=== PATIENT | male | born 1935 | race Caucasian/White ===

== ENCOUNTER 2018-08-02 17:33 | Emergency (ER) | payer OTHER ==
[~2018-08-02] VITALS: Ht 185.4 cm; Wt 81.7 kg
[~2018-08-02 17:33] MED LIST: AMBIEN 5 MG TABL5 M1 PO; COMPAZINE10 MG; GUAIFENESIN-CODE5 ML PO; HYDROCODONE-AP1 EAC6 PO; LIPITOR 20 MG T20 M1 PO; LOPRESSOR25 PO; OXYCONTIN10 M1 PO; PREDNISONE 10 M10 MG PO; REMERON15 MG; XARELTO10 MG PO; ZOFRAN ODT4 MG PO; ZPAK PO
[2018-08-02 18:55] LABS: HEMATOCRIT 37.5 % (42.0-52.0); HEMOGLOBIN 12.6 gm/dL (14.0-18.0); MCH 32.9 pg (26.0-34.0); MCHC 33.5 g/dL (28.0-37.0); PLATELET COUNT 199 thou/uL (150-400); RBC 3.83 mil/uL (4.50-6.00); WBC 5.3 thou/uL (4.0-11.0)
[2018-08-02 18:57] LABS: CREATININE 1.7 mg/dL (0.7-1.3); POTASSIUM 4.4 mmol/L (3.5-5.1)
[2018-08-02 19:14] LABS: APTT 33.2 Seconds (24.5-32.8); INR 1.1; PROTIME 11.6 Seconds (9.3-11.4)
[2018-08-02 19:24] LABS: ABSOLUTE NEUTROPHILS 2.6 thou/uL (1.4-8.2); ATYPICAL LYMPHS 8 %; PLATELET ESTIMATE NORMAL
[2018-08-02 19:26] LABS: ANISOCYTOSIS SLIGHT
[2018-08-02 20:30] VITALS: BP 192/101
== END 2018-08-02 20:30 | disposition home or self-care (01) ==
LOC: ER 17:33
PROVIDERS: Student in an Organized Health Care Education/Training Program
DX: S01.21XA Laceration without foreign body of nose, initial encounter (principal); S01.81XA Laceration without foreign body of other part of head, initial encounter; I48.91 Unspecified atrial fibrillation; Z96.653 Presence of artificial knee joint, bilateral; Z90.49 Acquired absence of other specified parts of digestive tract; Z88.8 Allergy status to other drugs, medicaments and biological substances; W18.39XA Other fall on same level, initial encounter; Y93.89 Activity, other specified; Y92.89 Other specified places as the place of occurrence of the external cause; Y99.8 Other external cause status

== ENCOUNTER 2020-02-06 08:58 | Inpatient (IN) | payer OTHER ==
[~2020-02-06] VITALS: Ht 175.3 cm; Wt 70.3 kg
[~2020-02-06 08:58] MED LIST changes: -LIPITOR 20 MG T20 M1 PO; +LIPITOR80 MG PO
[2020-02-06 08:59] VITALS: BP 177/78
[2020-02-06 09:45] LABS: ABSOLUTE NEUTROPHILS 10.2 thou/uL (1.4-8.2); BASOPHILS 0.5 % (0.0-2.0); HEMATOCRIT 38.2 % (42.0-52.0); HEMOGLOBIN 12.4 gm/dL (14.0-18.0); LYMPHOCYTES 4.1 % (24.0-44.0); MCH 32.6 pg (26.0-34.0); MCHC 32.5 g/dL (28.0-37.0); MCV 100.1 fL (80.0-100.0); MONOCYTES 11.9 % (1.0-8.0); PLATELET COUNT 222 thou/uL (150-400); POLYS 83.5 % (36.0-66.0); RBC 3.82 mil/uL (4.50-6.00); RDW 15.6 % (10.5-14.5); WBC 12.3 thou/uL (4.0-11.0)
[2020-02-06 09:53] LABS: URINE BILIRUBIN NEGATIVE (Negative); URINE BLOOD 1+ (Negative); URINE CLARITY CLEAR; URINE COLOR YELLOW; URINE GLUCOSE-RANDOM* NEGATIVE (Negative); URINE KETONES TRACE (Negative); URINE LEUKOCYTES-REFLEX NEGATIVE (Negative); URINE NITRITE-REFLEX NEGATIVE (Negative); URINE PROTEIN (DIPSTICK) 1+ (Negative); URINE SPECIFIC GRAVITY >= 1.030 (1.005-1.035)
[2020-02-06 09:54] LABS: CALCIUM 9.1 mg/dL (8.5-10.1); CREATININE 1.4 mg/dL (0.7-1.3); POTASSIUM 3.9 mmol/L (3.5-5.1)
[2020-02-06] MEDS ORDERED: TRAZODONE HCL50 MG PO (09:54)
[2020-02-06] MEDS ORDERED: HYDROCODON-ACE1 EAC8 PO (09:54)
[2020-02-06] MEDS ORDERED: LOW DOSE ASPIRI81 M1 PO (09:58)
[2020-02-06] MEDS ORDERED: CARVEDILOL12.5 MG PO (10:02)
[2020-02-06] MEDS ORDERED: MULTI-VITAMIN1 EAC5 PO (10:02)
[2020-02-06] MEDS ORDERED: AMIODARONE HCL400 MG PO (10:03)
[2020-02-06] MEDS ORDERED: VITAMIN B12-FO1 EAC1 PO (10:04)
[2020-02-06 10:05] LABS: ALBUMIN 3.4 g/dL (3.4-5.0); MAGNESIUM 2.1 mg/dL (1.8-2.4); TOTAL BILIRUBIN 1.4 mg/dL (0.2-1.0); TOTAL PROTEIN 7.5 g/dL (6.4-8.2); TROPONIN-I 0.06 ng/mL (<0.06)
[2020-02-06] MEDS ORDERED: COQ-1030 MG PO (10:05)
[2020-02-06] MEDS ORDERED: FISH OIL 1,0001 EAC9 PO (10:06)
[2020-02-06 10:12] LABS: BACTERIA-REFLEX None Seen /HPF (None Seen); CRYSTALS None Seen /LPF (None Seen); SQUAMOUS 0-3 Few /LPF (0-3); URINE RBC 0-2 Rare /HPF (0-2); URINE WBC-REFLEX None Seen /HPF (0-5)
--- NOTE | 2020-02-06 11:59 | EKG ---
[facility] [place] [address] ELECTROCARDIOGRAM REPORT Name: BRIANNA COLBY Room #: REG [facility]#: [id number] Admission: 02/06/20 Attend Phys: Discharge: Date of : 31 Report #: [id number] THIS REPORT FOR: cc: Iván Magdaleno MD, Paul Piezas MD Santiago, Patrick MD [facility] ~ THIS REPORT FOR: //name// [facility] ED Test Date: 2020-02-06 Test Time: 09:39:53 Pat Name: BRIANNA COLBY Department: Room: Gender: M Gear Keeper: HAILEY EWING : 1935 Requested By: Valerio Long Order Number: [id number] MD: Jered Zavaleta Measurements Intervals [place] Rate: 73 P: 94 SD: 194 QRS: 19 QRSD: 171 T: 113 QT: 445 QTc: 491 Interpretive Statements Atrial-sensed ventricular-paced complexes No further analysis attempted due to paced rhythm Baseline wander in lead(s) V4 Compared to ECG 01/23/2016 20:03:26 Sinus rhythm no longer present Intraventricular conduction delay no longer present Electronically Signed On 02-06-2020 11:58:57 GYRO COMPASS TESTER by Jered Zavaleta [email or web address] <ELECTRONICALLY SIGNED> By: Jered Zavaleta MD, FACC 02/06/20 1158 0939 Jered Zavaleta MD, FAC /EPI
[2020-02-06 12:55] VITALS: BP 158/84
[2020-02-06 14:22] VITALS: BP 150/76
[2020-02-06 14:45] VITALS: BP 164/82
--- NOTE | 2020-02-06 16:30 | NUR ---
CM ATTEMPTED PT TO PT'S NO ANSWER. CM TO FOLLOW INDICATED WITH DC PLANNING.
--- NOTE | 2020-02-06 16:49 | NUR ---
PT ARRIVED TO FLOOR FROM ED PER CART AT 1445 IN STABLE CONDITION.ADMISSION HX, ASSESSMENT AND CAREPLAN COMPLETED.TELE PACK APPLIED AND IVF INITIATED.PT SIGNED ALL ADMISSION PAPERS.EVENING MEDS GIVEN ORDERED.PT VOIDED PER URINAL.NO SOA OR VERBAL C/O AT PRESENT.WILL CONTINUE TO MONITOR.
[2020-02-06 18:37] LABS: FOLIC ACID 50.4 ng/mL (8.6-58.9)
[2020-02-06 20:02] VITALS: BP 115/69
--- NOTE | 2020-02-07 03:09 | NUR ---
ASSUMED CARE OF PT AT 1900. PT IS A/O X4 WITH SOME FORGETFULLNESS. DENIES ANY PAIN OR DISCOMFORT. C/O OF INSOMNIA. PRN SLEEP MEDICATION GIVEN DIRECTED. LUNGS SOUNDS WHEEZY. CALLED AND REQUESTED PRN BRTX. AWAITING FOR RT TO ARRIVE AT THIS MOMENT. PT IS LYING IN HIS BED AND APPEARS TO BE AWAKE AT THIS TIME. FALL PRECAUTIONS ARE IN PLACE CALL LIGHT IS WITHIN REACH. WILL CONTINUE TO MONITOR. URINAL PLACED AT THE BEDSIDE FOR C/O OF URGENCY.
[2020-02-07 05:38] LABS: ABSOLUTE NEUTROPHILS 7.4 thou/uL (1.4-8.2); BASOPHILS 0.5 % (0.0-2.0); EOSINOPHILS 0.7 % (0.0-3.0); HEMATOCRIT 31.6 % (42.0-52.0); HEMOGLOBIN 10.6 gm/dL (14.0-18.0); LYMPHOCYTES 6.4 % (24.0-44.0); MCH 33.1 pg (26.0-34.0); MCHC 33.6 g/dL (28.0-37.0); MCV 98.7 fL (80.0-100.0); MONOCYTES 9.1 % (1.0-8.0); PLATELET COUNT 168 thou/uL (150-400); POLYS 83.3 % (36.0-66.0); RDW 14.9 % (10.5-14.5); WBC 8.9 thou/uL (4.0-11.0)
[2020-02-07 05:45] LABS: CREATININE 1.3 mg/dL (0.7-1.3); MAGNESIUM 1.9 mg/dL (1.8-2.4); POTASSIUM 3.5 mmol/L (3.5-5.1)
[2020-02-07 08:46] VITALS: BP 115/60
[2020-02-07 13:15] VITALS: BP 116/73
--- NOTE | 2020-02-07 14:07 | 2DMMODE ---
[facility] [place] [address] 2 D/M-MODE ECHOCARDIOGRAM Name: BRIANNA COLBY Room #: 454-P ADM IN .R#: [id number] Admission: 02/06/20 Attend Phys: Jonathan Pandey MD Discharge: Date of : 31 Report #: [id number] THIS REPORT FOR: cc: Iván Magdaleno MD, Paul Piezas MD Park, Jin S. MD ~ APPROVED REPORT Study performed: 02/07/2020 09:02:41 EXAM: Comprehensive 2D, Doppler, and color-flow Echocardiogram Patient Location: In-Patient Room #: 454 Status: routine BSA: 1.84 HR: 70 bpm BP: 115/69 mmHg Rhythm: NSR Other Information Study Quality: Adequate Risk Factors: Cardiac Risk Factors: HTN, Hyperlipidemia Indications CAD 2D Dimensions IVSd: 13.35 (7-11mm) LVOT Diam: 21.99 (18-24mm) LVDd: 44.99 mm PWd: 10.87 (7-11mm) Ascending Ao: 37.88 (22-36mm) LVDs: 24.18 (25-40mm) Left Atrium: 45.60 (27-40mm) Aortic Root: 34.71 mm LV Single Plane 4CH: 56.96 % LV Single Plane 2CH: 68.91 % Volumes Left Atrial Volume (Systole) Single Plane 4CH: 44.04 mL Single Plane 2CH: 43.12 mL Aortic Valve AoV Peak Mj.: 4.17 m/s [facility] [address] [place] [address] 2 D/M-MODE ECHOCARDIOGRAM Name: BRIANNA COLBY Room #: 454-P [facility] [place] ..#: [id number] Admission: 02/06/20 Attend Phys: Jonathan Pandey MD Discharge: Date of : 31 Report #: [id number] AO Peak Gr.: 69.70 mmHg LVOT Max P.18 mmHg AO Mean Gr.: 33.27 mmHg LVOT Mean P.48 mmHg AO V2 Mean: 2.66 m/s LVOT Max V: 1.51 m/s AO V2 VTI: 82.73 cm LVOT Mean V: 0.96 m/s DONALD (VTI): 1.37 cm2 LVOT V1 VTI: 29.91 cm DONALD Vmax: 1.38 cm2 AI Vmax: 3.86 m/s SV (LVOT): 113.57 mL AI [place]: 2.30 m/s2 AI PHT: 486.65 ms Mitral Valve E/A Ratio: 1.3 MV Decel. Time: 320.99 ms MV E Max Mj.: 0.78 m/s MV A Mj.: 0.58 m/s MV PHT: 93.09 ms Tricuspid Valve TR Peak Mj.: 3.20 m/s TR Peak Gr.: 40.91 mmHg Left Ventricle The left ventricle is normal size. Mild concentric left ventricular hypertrophy. The left ventricular systolic function is normal. The left ventricular ejection fraction is within the normal range. LVEF is 60-65%. Right Ventricle The right ventricle is normal size. The right ventricular systolic function is normal. Atria Left atrium is at the upper limits of normal. Right atrium is moderately dilated. Aortic Valve Aortic valve is calcified. Mild aortic regurgitation. Moderate aortic stenosis. Mean PG 33 mmHg. DONALD caluculated to be 1.4 cm2. Mitral Valve The mitral valve is normal in structure. Mild mitral regurgitation. No evidence of mitral valve stenosis. Tricuspid Valve The tricuspid valve is normal in structure. ICD wire is present. Mild tricuspid regurgitation. Estimated PAP 45 mmHg. [facility] [address] [place] [address] 2 D/M-MODE ECHOCARDIOGRAM Name: BRIANNA COLBY Room #: 454-P [facility] [place] [facility]#: [id number] Admission: 02/06/20 Attend Phys: Jonathan Pandey MD Discharge: Date of : 31 Report #: [id number] Pulmonic Valve The pulmonary valve is normal in structure. There is no pulmonic valvular regurgitation. Great Vessels Aortic root is mildly dilated. IVC is normal in size and collapses >50% with inspiration. Pericardium There is no pericardial effusion. <Conclusion> The left ventricle is normal size. Mild concentric left ventricular hypertrophy. The left ventricular systolic function is normal. The right ventricle is normal size. Moderate aortic stenosis. Mild aortic regurgitation. Mild mitral regurgitation. Mild tricuspid regurgitation. <ELECTRONICALLY SIGNED> By: Tank Albert MD 02/07/201405 05 05 Tank Albert MD /INF
[2020-02-07 15:24] VITALS: BP 116/73
--- NOTE | 2020-02-07 15:30 | NUR ---
ASSUMED CARE AT 0700 THIS MORNING. PT. AWAKE AND COOPERATIVE WITH MEDICATIONS AND ASSESSMENT. HE ASKED FOR PAIN MEDICATION ABOUT 1150 AND WHEN THIS RN BROUGHT IT TO HIM HE STATED, "LET ME TELL YOU ABOUT MY PAIN MEDICATION AT HOME. I TAKE PAIN MEDICATIONS Q 4 HOURS". THIS RN REVIEWED THE MEDICATIONS WITH HIM AND ASKED IF I NEEDED TO CONTACT THE DR. FOR FURTHER INSTRUCTIONS. HE STATED, "NO". ABOUT 1300 HE STATED HE HAS A DRY COUGH AND HE NEEDS A COUGH MEDICATIONS WITH CODIENE OR AND EXPORANT. THIS RN AGAIN REVIEWED HIS MEDICATIONS WITH HIM AND ASKED IF HE WANTED ME TO CALL THE DREloy FOR A COUGH SYRUP. AGAIN HE REPLIED, "NO." AT 1530 THE BROUGHT UP A BOTTLE OF TUSSIN COUGH + CHEST CONGESTION DM. WILL CONTACT THE [facility] FOR INSTRUCTIONS ON THIS MEDICATION. 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 HE IS EATING WELL.
[2020-02-07 16:29] VITALS: BP 143/68
[2020-02-07 19:48] VITALS: BP 137/79
--- NOTE | 2020-02-08 03:07 | NUR ---
ASSUMED CARE OF PT AT 1900. PT IS A/O X4 WITH FORGETFULLNESS. PT C/O INSOMNIA AND PAIN. PRN SLEEP MEDICATION AND PAIN MEDICATION GIVEN DIRECTED. LUNGS SOUNDS ARE WHEEZY. PT REFUSING ANY PRN BRTX STATING THEY DON'T HELP. EDUCATED PT ON BENEFITS AND PT STILL REFUSED. AT THIS TIME PT IS LYING IN HIS BED AND APPEARS TO BE SLEEPING. FALL PRECAUTIONS ARE IN PLACE, CALL LIGHT IS WITHIN REACH. WILL CONTINUE TO MONITOR.
[2020-02-08 10:15] VITALS: BP 180/77
--- NOTE | 2020-02-08 10:28 | NUR ---
ASSUMED CARE AT 0700 THIS MORNING. PT. STABLE. HE IS POLITE AND COOPERATIVE WITH ASSESSMENT, VITALS, AND MEDIATIONS. HE STATES HE IS GOING HOME AFTER THE ANTIBIOTIC IS INFUSED. HE CALLED HIS ON THE PHONE TO BRING HIM SOME CLOTES TO PUT ON TO WEAR HOME. NO NEW PROBLEMS IDENTIFIED, ASSESSMENT WNL.
[2020-02-08] MEDS ORDERED: CEFDINIR300 MG PO (10:58)
== END 2020-02-08 11:51 | disposition home or self-care (01) | DRG 871 ==
LOC: ER 08:58 → EROBS 12:36 → 4W 14:42
PROVIDERS: Emergency Medicine; Nurse Practitioner; ADMIT Hospitalist; ATTEND Hospitalist
DX: A41.9 Sepsis, unspecified organism (principal); J18.9 Pneumonia, unspecified organism; G93.41 Metabolic encephalopathy; N17.9 Acute kidney failure, unspecified; G93.40 Encephalopathy, unspecified; I48.20 Chronic atrial fibrillation, unspecified; I42.9 Cardiomyopathy, unspecified; R77.8 Other specified abnormalities of plasma proteins; E78.5 Hyperlipidemia, unspecified; G89.29 Other chronic pain; M35.3 Polymyalgia rheumatica; E86.0 Dehydration; R41.3 Other amnesia; I10 Essential (primary) hypertension; I08.3 Combined rheumatic disorders of mitral, aortic and tricuspid valves; I49.5 Sick sinus syndrome; M54.9 Dorsalgia, unspecified; Z96.653 Presence of artificial knee joint, bilateral; Z79.01 Long term (current) use of anticoagulants; Z90.49 Acquired absence of other specified parts of digestive tract; Z98.1 Arthrodesis status; Z79.899 Other long term (current) drug therapy; Z88.8 Allergy status to other drugs, medicaments and biological substances; Z95.0 Presence of cardiac pacemaker; Z79.82 Long term (current) use of aspirin
CPT/HCPCS: 10045

== ENCOUNTER 2021-03-16 15:18 | Emergency (ER) | payer OTHER ==
[~2021-03-16] VITALS: Ht 172.7 cm; Wt 65.8 kg
[~2021-03-16 15:18] MED LIST changes: +AMIODARONE HCL400 MG PO; +CARVEDILOL12.5 MG PO; +CEFDINIR300 MG PO; +COQ-1030 MG PO; +FISH OIL 1,0001 EAC9 PO; +HYDROCODON-ACE1 EAC8 PO; +LOW DOSE ASPIRI81 M1 PO; +MULTI-VITAMIN1 EAC5 PO; +TRAZODONE HCL50 MG PO; +VITAMIN B12-FO1 EAC1 PO
[2021-03-16 16:56] LABS: ABSOLUTE NEUTROPHILS 5.1 thou/uL (1.4-8.2); BASOPHILS 0.9 % (0.0-2.0); EOSINOPHILS 2.8 % (0.0-3.0); HEMATOCRIT 38.6 % (42.0-52.0); HEMOGLOBIN 12.8 gm/dL (14.0-18.0); LYMPHOCYTES 16.5 % (24.0-44.0); MCH 32.9 pg (26.0-34.0); MCHC 33.2 g/dL (28.0-37.0); MCV 99.1 fL (80.0-100.0); MONOCYTES 12.3 % (1.0-8.0); PLATELET COUNT 239 thou/uL (150-400); POLYS 67.5 % (36.0-66.0); RBC 3.89 mil/uL (4.50-6.00); RDW 13.1 % (10.5-14.5); WBC 7.5 thou/uL (4.0-11.0)
[2021-03-16 17:05] LABS: CALCIUM 9.1 mg/dL (8.5-10.1); CREATININE 1.4 mg/dL (0.7-1.3); POTASSIUM 5.1 mmol/L (3.5-5.1)
[2021-03-16 17:11] LABS: ALBUMIN 3.9 g/dL (3.4-5.0); TOTAL BILIRUBIN 0.6 mg/dL (0.2-1.0)
[2021-03-16 18:14] LABS: URINE COLOR YELLOW
[2021-03-16 18:15] LABS: URINE CLARITY CLEAR; URINE GLUCOSE-RANDOM* NEGATIVE (Negative); URINE KETONES NEGATIVE (Negative); URINE PROTEIN (DIPSTICK) NEGATIVE (Negative); URINE SPECIFIC GRAVITY 1.015 (1.005-1.035)
[2021-03-16 18:16] LABS: URINE BILIRUBIN NEGATIVE (Negative); URINE BLOOD TRACE (Negative); URINE LEUKOCYTES-REFLEX NEGATIVE (Negative); URINE NITRITE-REFLEX POSITIVE (Negative)
[2021-03-16 18:22] LABS: CASTS None Seen /LPF (None Seen); SQUAMOUS 0-3 Few /LPF (0-3)
[2021-03-16 18:23] LABS: BACTERIA-REFLEX 1-9 Few /HPF (None Seen); CRYSTALS None Seen /LPF (None Seen); URINE RBC 1-2 Rare /HPF (NONE SEEN); URINE WBC-REFLEX 0-5 Rare /HPF (0-5)
[2021-03-16] MEDS ORDERED: CEPHALEXIN500 MG PO ×2 (18:44→18:55)
[2021-03-16 18:57] VITALS: BP 163/98
[2021-03-16] MEDS ORDERED: PYRIDIUM200 MG PO (19:09)
--- NOTE | 2021-03-17 14:53 | EKG ---
[place] [address] [facility] [place] [address] ELECTROCARDIOGRAM REPORT Name: BRIANNA COLBY [id number] Admission: 03/16/21 Attend Phys: Discharge: 03/16/21 Date of : 31 Report #: [id number] [facility] ED Test Date: 2021-03-16 Test Time: 15:36:07 Pat Name: BRIANNA COLBY Department: Room: Gender: Optimization Analyst: christoph : 1935 Requested By: Thelma Patton Order Number: [id number] MD: Jered Zavaleta Measurements Intervals [place] Rate: 70 P: AL: QRS: -73 QRSD: 172 T: 93 QT: 457 QTc: 494 Interpretive Statements Afib/flut and V-paced complexes No further analysis attempted due to paced rhythm Baseline wander in lead(s) I,III,aVL,aVF,V2,V4 Compared to ECG 02/06/2020 09:39:53 Atrial-sensed ventricular-paced complex(es) or rhythm no longer present Electronically Signed On 03-17-2021 14:53:31 CABLE SWAGER by Jered Zavaleta [email or web address] <ELECTRONICALLY SIGNED> By: Jered Zavaleta MD, FACC 03/17/21 1453 1536 1536 Jered Zavaleta MD, FAC /EPI
== END 2021-03-16 18:55 | disposition home or self-care (01) ==
LOC: ER 15:18
PROVIDERS: Emergency Medicine
DX: N39.0 Urinary tract infection, site not specified (principal); I48.91 Unspecified atrial fibrillation; Z88.8 Allergy status to other drugs, medicaments and biological substances; Z79.82 Long term (current) use of aspirin; Z79.899 Other long term (current) drug therapy

== ENCOUNTER 2021-03-30 08:35 | Emergency (ER) | payer OTHER ==
[~2021-03-30] VITALS: Ht 175.3 cm; Wt 68.0 kg
[~2021-03-30 08:35] MED LIST changes: +CEPHALEXIN500 MG PO; +PYRIDIUM200 MG PO
[2021-03-30 09:40] LABS: ABSOLUTE NEUTROPHILS 7.6 thou/uL (1.4-8.2); BASOPHILS 0.3 % (0.0-2.0); EOSINOPHILS 0.8 % (0.0-3.0); HEMATOCRIT 39.6 % (42.0-52.0); HEMOGLOBIN 13.3 gm/dL (14.0-18.0); LYMPHOCYTES 7.8 % (24.0-44.0); MCH 33.2 pg (26.0-34.0); MCHC 33.6 g/dL (28.0-37.0); MCV 98.8 fL (80.0-100.0); MONOCYTES 11.1 % (1.0-8.0); PLATELET COUNT 212 thou/uL (150-400); RBC 4.01 mil/uL (4.50-6.00); RDW 13.4 % (10.5-14.5); WBC 9.5 thou/uL (4.0-11.0)
[2021-03-30 09:50] LABS: CALCIUM 9.3 mg/dL (8.5-10.1); CREATININE 1.2 mg/dL (0.7-1.3); POTASSIUM 4.1 mmol/L (3.5-5.1)
[2021-03-30 09:56] LABS: TOTAL BILIRUBIN 0.8 mg/dL (0.2-1.0); TOTAL PROTEIN 6.9 g/dL (6.4-8.2)
[2021-03-30 10:02] LABS: URINE BILIRUBIN NEGATIVE (Negative); URINE BLOOD TRACE (Negative); URINE CLARITY CLEAR; URINE COLOR YELLOW; URINE GLUCOSE-RANDOM* NEGATIVE (Negative); URINE KETONES NEGATIVE (Negative); URINE LEUKOCYTES-REFLEX NEGATIVE (Negative); URINE NITRITE-REFLEX NEGATIVE (Negative); URINE PROTEIN (DIPSTICK) NEGATIVE (Negative); URINE UROBILINOGEN 0.2 E.U./dl (0.2-1.0)
[2021-03-30] MEDS ORDERED: ZOFRAN ODT4 MG PO (10:59)
[2021-03-30 11:09] VITALS: BP 185/114
== END 2021-03-30 11:23 | disposition home or self-care (01) ==
LOC: ER 08:35
PROVIDERS: Emergency Medicine
DX: E87.1 Hypo-osmolality and hyponatremia (principal); R53.1 Weakness; Z90.49 Acquired absence of other specified parts of digestive tract; Z79.899 Other long term (current) drug therapy; Z88.8 Allergy status to other drugs, medicaments and biological substances

== ENCOUNTER 2021-04-08 07:33 | Inpatient (IN) | payer OTHER ==
[~2021-04-08] VITALS: Ht 172.7 cm; Wt 65.3 kg
[2021-04-08 07:54] VITALS: BP 136/74
[2021-04-08 09:36] LABS: ABSOLUTE NEUTROPHILS 13.9 thou/uL (1.4-8.2); BASOPHILS 0.5 % (0.0-2.0); EOSINOPHILS 0.2 % (0.0-3.0); HEMATOCRIT 35.8 % (42.0-52.0); HEMOGLOBIN 11.9 gm/dL (14.0-18.0); LYMPHOCYTES 4.6 % (24.0-44.0); MCH 32.9 pg (26.0-34.0); MCHC 33.2 g/dL (28.0-37.0); MCV 99.2 fL (80.0-100.0); MONOCYTES 9.9 % (1.0-8.0); PLATELET COUNT 226 thou/uL (150-400); POLYS 84.8 % (36.0-66.0); RBC 3.61 mil/uL (4.50-6.00); RDW 13.4 % (10.5-14.5); WBC 16.4 thou/uL (4.0-11.0)
[2021-04-08 10:01] LABS: CALCIUM 9.2 mg/dL (8.5-10.1); POTASSIUM 4.6 mmol/L (3.5-5.1)
[2021-04-08 10:11] LABS: ALBUMIN 3.4 g/dL (3.4-5.0); TOTAL BILIRUBIN 0.8 mg/dL (0.2-1.0); TOTAL PROTEIN 6.5 g/dL (6.4-8.2)
[2021-04-08 11:18] LABS: URINE BILIRUBIN NEGATIVE (Negative); URINE BLOOD TRACE (Negative); URINE CLARITY CLEAR; URINE COLOR YELLOW; URINE GLUCOSE-RANDOM* NEGATIVE (Negative); URINE KETONES NEGATIVE (Negative); URINE LEUKOCYTES-REFLEX NEGATIVE (Negative); URINE NITRITE-REFLEX NEGATIVE (Negative); URINE PROTEIN (DIPSTICK) NEGATIVE (Negative); URINE UROBILINOGEN 0.2 E.U./dl (0.2-1.0)
[2021-04-08 12:00] VITALS: BP 110/62
--- NOTE | 2021-04-08 14:20 | EKG ---
[place] [address] [facility] [place] [address] ELECTROCARDIOGRAM REPORT Name: BRIANNA COLBY Room #: 170-10 ADM IN M.R.#: [id number] Admission: 04/08/21 Attend Phys: Rebeka Moise Discharge: Date of : 31 Report #: [id number] [facility] ED Test Date: 2021-04-08 Test Time: 07:45:19 Pat Name: BRIANNA COLBY Department: Room: 170 Gender: M Tire Molder: AMANDA : 1935 Requested By: Miguelito Bean Order Number: [id number] MD: Jered Zavaleta Measurements Intervals [place] Rate: 70 P: -54 MD: 167 QRS: -50 QRSD: 168 T: 109 QT: 454 QTc: 490 Interpretive Statements Ventricular-paced complexes No further analysis attempted due to paced rhythm Compared to ECG 03/16/2021 15:36:07 Atrial fibrillation no longer present Electronically Signed On 04-08-2021 14:20:31 CLIENT SERVICES DIRECTOR by Jered Zavaleta [email or web address] <ELECTRONICALLY SIGNED> By: Jered Zavaleta MD, [facility] 04/08/21 1420 4 4 Jered Zavaleta MD, FACC /EPI
[2021-04-08 16:46] VITALS: BP 110/62
[2021-04-08 20:00] VITALS: BP 120/64
[2021-04-09 06:12] LABS: HEMATOCRIT 29.7 % (42.0-52.0); HEMOGLOBIN 10.2 gm/dL (14.0-18.0); MCH 33.6 pg (26.0-34.0); MCHC 34.3 g/dL (28.0-37.0); RBC 3.03 mil/uL (4.50-6.00); RDW 13.4 % (10.5-14.5); WBC 10.3 thou/uL (4.0-11.0)
[2021-04-09 06:19] LABS: CALCIUM 8.3 mg/dL (8.5-10.1); POTASSIUM 3.9 mmol/L (3.5-5.1)
[2021-04-09 06:21] LABS: ALBUMIN 2.6 g/dL (3.4-5.0); MAGNESIUM 1.8 mg/dL (1.8-2.4); TOTAL BILIRUBIN 0.7 mg/dL (0.2-1.0); TOTAL PROTEIN 5.3 g/dL (6.4-8.2)
[2021-04-09 07:17] VITALS: BP 127/77
[2021-04-09 16:03] VITALS: BP 110/72
[2021-04-09 20:23] VITALS: BP 142/94
--- NOTE | 2021-04-10 05:11 | NUR ---
PT TRANSFERRING TO BEDSIDE COMMODE WITH STANDBY ASSIST AND IS TOLERATING WELL. MORPHINE PROVIDING PAIN RELIEF. RESTING COMFORTABLY. NO NEEDS VOICED. CALL LIGHT WITHIN REACH. FREQUENT OBSERVATION.
[2021-04-10 07:11] VITALS: BP 122/87
[2021-04-10 15:52] VITALS: BP 125/83
[2021-04-10 20:15] VITALS: BP 174/98
[2021-04-11 07:12] VITALS: BP 151/96
--- NOTE | 2021-04-11 07:32 | NUR ---
Assumed care on 04/10/21 @ 1900, in bed, but gets up ad linda to use the BSC, Continent of B&B. Positive for CDiff, A&Ox4, but quite hard of hearing and did not wear his hearing aides at any time throughout the shift. 20 IV site in Left ForeArm is saline locked. IV medications provided as ordered. Call light within reach.
--- NOTE | 2021-04-11 09:45 | NUR ---
Case opened to follow for dc planning. Pt is a&ox4 and lives in an indep schneider at [facility] with his Veronica. Veronica reports that he is indep with gait and adl's but has occasional use of a FWW if he is feeling "off balance". He is up ad linda to the BSC currently and steady on his feet per unit Rn. reports no steps, no hh hx and no concerns about dc home. She is able to pick him up in the ER drive thru if dc'd today or tomorrow. She notes their Dtr Princess needs to be added to the spokespersons list and that she works here at [employer]. They brought the pt some warm pjs to wear at dc. Pt's indicates they have both been vaccinated and boosted for covid. She is hoping he can come home and not need any HH. His pcp is Dr. Iván Magdaleno. Cm role introduced and contact number for cm and the unit provided. is available via phone as needed. Will follow.
--- NOTE | 2021-04-11 10:40 | 2DMMODE ---
[facility] [place] [address] 2 D/M-MODE ECHOCARDIOGRAM Name: BRIANNA COLBY Room #: 443-P ADM IN M.R.#: [id number] Admission: 04/08/21 Attend Phys: Rebeka Moise Discharge: Date of : 31 Report #: [id number] THIS REPORT FOR: cc: Iván Magdaleno MD, Paul Piezas MD Santiago, Patrick MD [facility] ~ APPROVED REPORT Study performed: 04/11/2021 09:40:44 EXAM: Comprehensive 2D, Doppler, and color-flow Echocardiogram Patient Location: Bedside Room #: 443 Status: routine BSA: 1.76 HR: 69 bpm BP: 151/96 mmHg Rhythm: NSR Other Information Study Quality: Good Indications ICD: Dyspnea 2D Dimensions RVDd: 45.45 mm IVSd: 14.63 (7-11mm) LVOT Diam: 18.85 (18-24mm) LVDd: 42.08 mm PWd: 14.98 (7-11mm) Ascending Ao: 30.81 (22-36mm) LVDs: 34.51 (25-40mm) Left Atrium: 37.72 (27-40mm) Aortic Root: 34.18 mm Volumes Left Atrial Volume (Systole) Single Plane 4CH: 73.70 mL Single Plane 2CH: 66.07 mL LA ESV Index: 43.00 mL/m2 Aortic Valve AoV Peak Mj.: 2.36 m/s AO Peak Gr.: 22.36 mmHg LVOT Max P.02 mmHg AO Mean Gr.: 12.77 mmHg LVOT Mean P.15 mmHg [facility] [address] [place] [address] 2 D/M-MODE ECHOCARDIOGRAM Name: BRIANNA COLBY Room #: 443-P [facility]#: [id number] Admission: 04/08/21 Attend Phys: Rebeka Magana [facility] Discharge: Date of : 31 Report #: [id number] AO V2 Mean: 1.69 m/s LVOT Max V: 0.84 m/s AO V2 VTI: 55.28 cm LVOT Mean V: 0.47 m/s DONALD (VTI): 0.96 cm2 LVOT V1 VTI: 19.10 cm DONALD Vmax: 0.99 cm2 SV (LVOT): 53.25 mL Pulmonary Valve PV Peak Jm.: 0.97 m/s PV Peak Gr.: 3.80 mmHg Tricuspid Valve TR Peak Mj.: 2.96 m/s TR Peak Gr.: 35.13 mmHg PA Pressure: 35.00 mmHg Left Ventricle The left ventricle is normal size. Mild concentric left ventricular hypertrophy. Left ventricular systolic function is normal. LVEF is 50%. This study is not technically sufficient to allow evaluation of the LV diastolic function. Right Ventricle Right ventricle is at the upper limits of normal. The right ventricular systolic function is normal. Device lead is present in the right ventricle. Atria Left atrium is dilated. Right atrium is dilated. Device lead is present in the right atrium. Aortic Valve The aortic valve is normal in structure. Aortic valve is calcified. Mild aortic regurgitation. Calculated aortic valve area is 1.0 cm2 with maximum pressure gradient of 22 mmHg and mean pressure gradient of 13 mmHg. Mitral Valve The mitral valve is normal in structure. Moderate mitral regurgitation. No evidence of mitral valve stenosis. Tricuspid Valve The tricuspid valve is normal in structure. There is mild tricuspid regurgitation.Estimated PAP 35mmHg plus the right atrial pressure. There is mild-moderate pulmonary hypertension. Pulmonic Valve The pulmonary valve is normal in structure. [place] [address] 2 D/M-MODE ECHOCARDIOGRAM Name: LASHABRIANNA Michael Room #: 443-P [facility]#: [id number] Admission: 04/08/21 Attend Phys: Rebeka Alfredo Discharge: Date of : 31 Report #: [id number] valvular regurgitation. Great Vessels The aortic root is normal in size. IVC is not well visualized. Pericardium There is no pericardial effusion. <Conclusion> Normal left ventricle size with mild concentric hypertrophy Ejection fraction 50% Normal right ventricle size/function Mild biatrial enlargement Moderately calcified aortic valve Aortic valve stenosis with an aortic valve area estimated 1 cm and mean gradient of 13 mmHg. Visually the aortic valve appears to be moderately stenotic Mild mitral annular calcification Moderate/central mitral valve insufficiency Mild tricuspid valve insufficiency Pulmonary systolic pressure estimated at 35 mmHg No pericardial effusion Normal aortic root size <ELECTRONICALLY SIGNED> By: Jered Zavaleta MD, FACC 04/11/21 1040 1040 1040 Jered Zavaleta MD, FACC /INF
[2021-04-11] MEDS ORDERED: VANCOMYCIN HCL125 MG PO (11:00)
[2021-04-11] MEDS ORDERED: FLORANEX TABLE1 EACH PO (11:00)
[2021-04-11 11:09] VITALS: BP 151/96
[2021-04-11 11:35] VITALS: BP 151/96
--- NOTE | 2021-04-11 13:54 | NUR ---
PATIENT DISCHARGED PRIOR TO OT EVALUATING PATIENT.
== END 2021-04-11 12:45 | disposition home or self-care (01) | DRG 371 ==
LOC: ER 07:33 → EROBS 10:54 → 4S 10:54 → EROBS 18:35 → 4S 04-09 02:16
PROVIDERS: Emergency Medicine; ADMIT Hospitalist; ATTEND Hospitalist
DX: A04.72 Enterocolitis due to Clostridium difficile, not specified as recurrent (principal); E43 Unspecified severe protein-calorie malnutrition; Z20.822 Contact with and (suspected) exposure to COVID-19; I48.91 Unspecified atrial fibrillation; Z96.653 Presence of artificial knee joint, bilateral; N40.0 Benign prostatic hyperplasia without lower urinary tract symptoms; E78.5 Hyperlipidemia, unspecified; G89.29 Other chronic pain; M54.9 Dorsalgia, unspecified; M35.3 Polymyalgia rheumatica; D72.829 Elevated white blood cell count, unspecified; F03.90 Unspecified dementia, unspecified severity, without behavioral disturbance, psychotic disturbance, mood disturbance, and anxiety; Z90.49 Acquired absence of other specified parts of digestive tract; Z95.810 Presence of automatic (implantable) cardiac defibrillator; Z88.8 Allergy status to other drugs, medicaments and biological substances; Z82.49 Family history of ischemic heart disease and other diseases of the circulatory system; Z86.73 Personal history of transient ischemic attack (TIA), and cerebral infarction without residual deficits; Z79.82 Long term (current) use of aspirin; Z79.899 Other long term (current) drug therapy
CPT/HCPCS: 10195